=== PATIENT | male | born 1940 | race Caucasian/White ===

== ENCOUNTER 2017-01-10 14:40 | Emergency (ER) | payer MEDICARE ==
[~2017-01-10] VITALS: Ht 162.6 cm; Wt 67.0 kg
[~2017-01-10 14:40] MED LIST: ANTIVERT25 MG OR; BAYER ASPIRIN E81 MG PO; CARDIZEM CD120 MG PO; FISH OIL1000 MG PO; LEVOTHYROXIN50 MCG PO; MECLIZINE12.5 M1 PO; NO MEDS; NORCO1 TA1 PO; SIMVASTATIN10 MG PO; XARELTO20 MG PO
[2017-01-10] MEDS ORDERED: LEVOTHYROXIN75 MC1 PO (15:04)
[2017-01-10] MEDS ORDERED: METO50TA52 PO (15:04)
[2017-01-10] MEDS ORDERED: LOSARTAN POT50 MG PO (15:05)
[2017-01-10] MEDS ORDERED: MECLIZINE25 MG PO (15:09)
[2017-01-10] MEDS ORDERED: COLACE100 MG PO (15:10)
[2017-01-10 16:10] VITALS: BP 139/71
== END 2017-01-10 16:10 | disposition home or self-care (01) ==
LOC: ED 14:40
DX: H11.31 Conjunctival hemorrhage, right eye (principal); Z79.01 Long term (current) use of anticoagulants

== ENCOUNTER → 2018-10-04 | Outpatient (REF) | payer MEDICARE ==
[~2018-10-04] MED LIST changes: +COLACE100 MG PO; +LEVOTHYROXIN75 MC1 PO; +LOSARTAN POT25 MG PO; +LOSARTAN POT50 MG PO; +MECLIZINE25 MG PO; +METO25TAB PO; +METO50TA52 PO; +METOPROL TAR25 M1 PO; +NITROGLYCERIN0.4 MG SL; +PLAVIX75 MG PO
== END | disposition home or self-care (01) ==
LOC: MRI 08:08
PROVIDERS: ATTEND Nurse Practitioner
DX: M25.512 Pain in left shoulder (principal); R53.1 Weakness

== ENCOUNTER 2019-08-30 | Emergency (ER) | payer MEDICARE ==
[2019-08-30 12:00] LABS: HEMATOCRIT 46.3 % (39.0-50.0); HEMOGLOBIN 15.7 g/dl (14.0-18.0); IMMATURE GRANULOCYTES 0.3 % (0.0-5.0); MEAN CELL VOLUME 87.7 fL CALC (80.0-100.0); MEAN CORPUSCULAR HGB 29.7 pG CALC (26.0-32.0); MEAN CORPUSCULAR HGB CONC 33.9 g/L CALC (32.0-36.0); NEUT# 10.21 thou/uL (1.82-7.42); RED BLOOD COUNT 5.28 mill/uL (4.70-6.10); RED CELL DISTRI WIDTH 13.7 % (11.5-15.5)
[2019-08-30 13:03] LABS: MAGNESIUM 1.9 mg/dL (1.6-2.3)
[2019-08-30 13:15] LABS: MYOGLOBIN 61 ng/mL (0 - 121)
[2019-08-30 14:40] LABS: ALBUMIN 4.1 g/dL (3.2-5.0); ALKALINE PHOSPHATASE 78 u/l (38-126); ANION GAP 13 (6-22 (CALC)); BUN 30 mg/dL (8-23); BUN/CREATININE RATIO 26 (12-20 (CALC)); CARBON DIOXIDE 26 mmol/l (22-30); CHLORIDE 106 mmol/l (95-108); CREATININE 1.1 mg/dL (0.7-1.3); GFR > 60 ML/MIN (>=60 (CALC)); GFR FOR AFR.AMER. > 60 ML/MIN (>=60 (CALC)); POTASSIUM 4.2 mmol/l (3.5-5.1); SGOT/AST 21 u/l (19-48); SODIUM 140 mmol/l (137-146); TOTAL PROTEIN 7.6 g/dL (6.3-8.2)
[2019-08-30 14:44] LABS: BILIRUBIN, TOTAL 1.2 mg/dL (0.0-1.4)
[2019-08-30 16:25] LABS: URINE BILIRUBIN - DIPSTICK NEGATIVE (NEGATIVE); URINE BLOOD DIPSTICK NEGATIVE (NEGATIVE); URINE COLOR YELLOW; URINE GLUCOSE - DIPSTICK NEGATIVE (NEGATIVE); URINE KETONE NEGATIVE (NEGATIVE); URINE LEUK ESTERASE NEGATIVE (NEGATIVE); URINE NITRITE - DIPSTICK NEGATIVE (Negative); URINE PH 5.5 (4.5-8.0); URINE PROTEIN - DIPSTICK TRACE mg/dL (NEG-TRACE); URINE SPECIFIC GRAVITY 1.025
[2019-08-30] MEDS ORDERED: DOXYCYCL HYC100 MG PO (18:22)
[2019-08-30] MEDS ORDERED: ANTIVERT PO (18:22)
== END 2019-08-30 18:45 | disposition home or self-care (01) ==
PROVIDERS: Family Medicine
DX: R42 Dizziness and giddiness (principal); I10 Essential (primary) hypertension; E03.9 Hypothyroidism, unspecified; Z95.5 Presence of coronary angioplasty implant and graft; R94.31 Abnormal electrocardiogram [ECG] [EKG]

== ENCOUNTER 2022-01-13 12:49 | Emergency (ER) | payer MEDICARE ==
[~2022-01-13] VITALS: Ht 162.6 cm; Wt 83.6 kg
[2022-01-13] VITALS (11 sets, daily range): BP systolic 181–207; BP diastolic 65–109
[~2022-01-13 12:49] MED LIST changes: +ANTIVERT PO; +DOXYCYCL HYC100 MG PO
[2022-01-13] MEDS ORDERED: ASPIRIN 81 LOW81 MG PO (13:12)
[2022-01-13 13:49] LABS: ALBUMIN 3.9 g/dL (3.2-5.0); ALKALINE PHOSPHATASE 62 u/l (38-126); ANION GAP 13 (6-22 (CALC)); BILIRUBIN, TOTAL 0.5 mg/dL (0.0-1.4); BUN 22 mg/dL (8-23); BUN/CREATININE RATIO 23 (12-20 (CALC)); CARBON DIOXIDE 27 mmol/l (22-30); CHLORIDE 106 mmol/l (95-108); GFR FOR AFR.AMER. > 60 ML/MIN (>=60 (CALC)); GFR OTHER RACES > 60 ML/MIN (>=60 (CALC)); POTASSIUM 3.5 mmol/l (3.5-5.1); SGOT/AST 18 u/l (19-48); SODIUM 142 mmol/l (137-146); TOTAL PROTEIN 6.9 g/dL (6.3-8.2)
[2022-01-13 13:51] LABS: HEMATOCRIT 21.8 % (39.0-50.0); IMMATURE GRANULOCYTES 0.6 % (0.0-5.0); MEAN CELL VOLUME 80.7 fL CALC (80.0-100.0); MEAN CORPUSCULAR HGB CONC 28.4 g/dL CAL (32.0-36.0); NEUT# 2.01 thou/uL (1.82-7.42); RED BLOOD COUNT 2.7 mill/uL (4.70-6.10); RED CELL DISTRI WIDTH 16.8 % (11.5-15.5)
[2022-01-13 13:54] LABS: HEMOGLOBIN 6.2 g/dl (14.0-18.0); INTERNATIONAL NORMALIZED RATIO 1.2 RATIO (0.7-1.3); PROTHROMBIN TIME 12.4 SECONDS (9.0-12.5)
== END 2022-01-13 15:03 | disposition short-term general hospital (02) ==
LOC: ED 12:49
PROVIDERS: Family Medicine
PROC: 30233N1 Transfusion of Nonautologous Red Blood Cells into Peripheral Vein, Percutaneous Approach (ICD-10-PCS; principal; 2022-01-13)
DX: K92.2 Gastrointestinal hemorrhage, unspecified (principal); D62 Acute posthemorrhagic anemia; I10 Essential (primary) hypertension; I48.91 Unspecified atrial fibrillation; E03.9 Hypothyroidism, unspecified; Z95.5 Presence of coronary angioplasty implant and graft; Z79.01 Long term (current) use of anticoagulants; E78.2 Mixed hyperlipidemia; R73.9 Hyperglycemia, unspecified
CPT/HCPCS: P9016

== ENCOUNTER 2023-07-25 23:23 | Emergency (ER) | payer MEDICARE ==
[~2023-07-25] VITALS: Ht 162.6 cm; Wt 81.6 kg
[~2023-07-25 23:23] MED LIST changes: +ASPIRIN 81 LOW81 MG PO
[2023-07-26] MEDS ORDERED: MELOXICAM7.5 MG PO (03:33)
[2023-07-26] MEDS ORDERED: METHOCARBAMOL500 MG PO (03:33)
[2023-07-26 03:43] VITALS: BP 160/90
== END 2023-07-26 03:50 | disposition home or self-care (01) ==
LOC: ED 23:23
DX: M25.50 Pain in unspecified joint (principal); R07.1 Chest pain on breathing; M16.11 Unilateral primary osteoarthritis, right hip; M47.812 Spondylosis without myelopathy or radiculopathy, cervical region; I10 Essential (primary) hypertension; E03.9 Hypothyroidism, unspecified; I48.91 Unspecified atrial fibrillation; Z96.642 Presence of left artificial hip joint; Z95.5 Presence of coronary angioplasty implant and graft; Z91.81 History of falling